=== PATIENT | male | born 2000 | race Caucasian/White ===

== ENCOUNTER 2024-07-04 18:02 | Emergency (ER) | payer BC, SELFPAY ==
[2024-07-04 18:03] VITALS: BP 129/84; PULSE 111; RESP 18; TEMP 37.2; O2SAT 99; BMI 26.5
--- NOTE | 2024-07-04 18:53 | CT_ITS ---
PROCEDURE INFORMATION: Exam: CT Lumbar Spine Without Contrast Exam date and time: 07/04/2024 7:18 PM Age: 23 years old Clinical indication: Other: Midline pain after bent over TECHNIQUE: Imaging protocol: Computed tomography of the lumbar spine without contrast. Radiation optimization: All CT scans at this facility use at least one of these dose optimization techniques: automated exposure control; mA and/or kV adjustment per patient size (includes targeted exams where dose is matched to clinical indication); or iterative reconstruction. COMPARISON: No relevant prior studies available. FINDINGS: Bones/joints: There is normal alignment of the lumbar spine. Five [id number] lumbar-type vertebra are noted. The vertebral bodies demonstrate normal height. There is no evidence of acute fracture or dislocation. Mild endplate irregularity is seen posteriorly at L1-L2. There is mild disc height loss at L1-L2. L1-L2: 3.2 mm central disc protrusion indents the ventral thecal sac but causes no significant spinal canal or neural foraminal narrowing. L2-L3: No significant disc bulge or herniation. No severe spinal canal stenosis. No significant neural foraminal narrowing. L3-L4: 4.6 mm central disc protrusion causes moderate spinal canal narrowing. No significant neural foraminal narrowing. L4-L5: No significant disc bulge or herniation. No severe spinal canal stenosis. Mild bilateral neural foraminal narrowing. L5-S1: 3.5 mm central disc protrusion without significant spinal canal or neural foraminal narrowing. Soft tissues: Unremarkable. IMPRESSION: 1. No evidence of acute osseous injury. 2. L3-L4 disc protrusion measuring 4.6 mm causes moderate spinal canal narrowing.
--- NOTE | 2024-07-04 18:55 | ED_ITS ---
Discharge Plan Disposition Patient Disposition: Home, Self-Care Prescriptions Prescriptions: New lidocaine 5 % adhesive patch,medicated 1 patch topical DAILY Qty: 15 0RF Rx Instructions: leave on most painful area for up to 12 hrs methocarbamol 500 mg tablet 1,000 mg PO Q8H PRN (Reason: muscle pain and spasm) Qty: 30 0RF Referrals Follow up/Referrals: Provider,Referral, MD [Primary Care Provider] - See instructions Activity Restrictions/Add. Instructions Additional Instructions/Restrictions: At this time it was felt you are safe to be discharged home. If new or worsening symptoms please do not hesitate to return the emergency department. Please take 1000 mg Tylenol and 800 mg of ibuprofen every 6 hours with little bit of food for pain. Please take your muscle relaxer as prescribed. Please follow-up with physical therapy, they should contact you for an appointment. Clinical Impressions Clinical Impression: Bulging lumbar disc Instructions Patient Instructions: DI for Low Back Pain Print Language Print Language: Kyrgyz Discharge ED Provider: [facility] HPI General Chief complaint: Back Pain/Injury Stated complaint: low back pain Time Seen by Provider: 07/04/24 18:31 Mode of Arrival: Ambulatory Source of Information: Patient Limitations: No Limitations Description of Symptoms (Recalled from ER Triage Doc. by RN): Pt states he was working on his chicken coop and when he stood up he felt a sharp pain in his pain, and has had limited range of motion since. History of Present Illness HPI narrative: Patient is 23-year-old male with no pertinent past medical history presents emergency department for evaluation back pain. Patient was bent over working on a chicken coop when he had severe midline and bilateral lumbar paraspinal pain. He pain is severe in intensity borderline debilitating. Lumbar in a bandlike distribution. No urinary or fecal incontinence. He has limited ability to walk secondary to pain in his back however he has preserved strength in his legs. No numbness in his legs. No other acute complaints at this time. Related Data Previous Rx's ?Medication ?Instructions ?Recorded lidocaine 5 % topical patch 1 patch topical DAILY back pain 07/04/24 #15 ea methocarbamol 500 mg tablet 1,000 mg (2 x 500 mg) PO Q8H PRN 07/04/24 muscle pain and spasm #30 tabs Allergies Allergy/AdvReac Type Severity Reaction Status Date / Time No Known Allergies Allergy Verified 07/04/24 22:07 [facility] Disclaimer: The information contained in this section may have been updated after the patient was seen, as this information can be updated by other users. Social History Smoking Status: Never smoker alcohol intake: never current occupational status: other Travel in the last 8 weeks: None ROS Obtained: Yes Systems reviewed as appropriate & no additional complaints except as documented Physical Exam General General appearance: alert and in no apparent distress Head Head exam: atraumatic and normocephalic Eye Eye exam: Present PERRL ENT ENT exam: Present mucous membranes moist Neck Neck exam: Present normal inspection Chest Chest inspection: Present normal inspection and symmetric chest wall rise Respiratory Respiratory exam: Absent respiratory distress Cardiovascular Cardiovascular exam: Present regular rate and normal rhythm Abdominal Exam Abdominal exam: Present soft Extremities Exam Extremities exam: Present normal inspection and other (5/5 strength bilateral lower extremities) Back Exam Back exam: Present other (No overlying skin changes, midline and bilateral lumbar tenderness.) Neurological Exam Neurological exam: Present alert Psychiatric Psychiatric exam: Present normal affect Skin Skin exam: Present warm and dry Medical Decision Making Medical Records Screening: Per USPSTF and CDC recommendations, given the prevalence of disease in our region, it is our hospital?s policy to screen for HIV and viral Hepatitis for all patients aged 18 and over and those with ongoing risk factors. Josh Inquiry Pt receiving controlled substance: No Vital Signs: 07/04/24 18:03 Temperature 98.9 F Temperature Source Oral Pulse Rate [Right] 111 H Respiratory Rate 18 Blood Pressure [Right Arm] 129/84 Blood Pressure Mean [Right Arm] 99 Blood Pressure Source [Right Arm] Automatic Cuff Blood Pressure Position [Right Arm] Sitting 02 Sat by Pulse Oximetry 99 Oxygen Delivery Method Room Air Orders (Tests/Meds): ED MEDICATIONS Discontinued Medications Generic Name Dose Route Start Last Admin Trade Name Freq PRN Reason Stop Dose Admin Acetaminophen 1,000 mg 07/04/24 18:53 07/04/24 19:33 Acetaminophen 500mg Tab PO 07/04/24 18:54 1,000 mg ONCE ONE Administration Ketorolac Tromethamine 60 mg 07/04/24 18:53 07/04/24 19:35 Ketorolac 30mg/Ml Vial IM 07/04/24 18:54 60 mg ONCE ONE Administration Lidocaine 1 each 07/04/24 18:53 07/04/24 19:34 Lidocaine 5% Transdermal Patch TP 07/04/24 18:54 1 each ONCE ONE Administration Methocarbamol 1,000 mg 07/04/24 18:54 07/04/24 19:33 Methocarbamol 500mg Tablet PO 07/04/24 18:55 1,000 mg ONCE ONE Administration Oxycodone HCl 5 mg 07/04/24 18:55 07/04/24 19:33 Oxycodone 5mg Immediate Release Tablet PO 07/04/24 18:56 5 mg ONCE ONE Administration ORDERS Category Date Time Status CT lumbar spine wo con Stat Cat Scan 07/04/24 18:53 Taken Medical Decision Narrative: In summary patient is 23-year-old male past medical history described above who presents emergency department for evaluation of back pain. Patient is hemodynamically stable nontoxic-appearing upon arrival, afebrile. History physical strongly consistent with slipped disc versus musculoskeletal strain. He has red flag symptoms only in the sense that he is tender in the midline. He does not have any saddle anesthesia, no incontinence to suggest spinal cord compression syndrome. However given midline tenderness differential includes insufficiency fracture, among others for which workup be conducted with CT lumbar spine. Initial interventions include multimodal pain control. CT lumbar spine remarkable for bulging disc without evidence of cord compression. Upon repeat evaluation patient had acceptable resolution of symptoms however was still in pain. Projected course was explained to the patient he will be discharged with a course of muscle relaxers and topical lidocaine patches was given return precautions. Critical Care Critical Care Time Critical Care Time: No
[2024-07-04] MEDS: METHOCARBAMOL 500MG TABLET 1000 MG PO (19:33)
[2024-07-04] MEDS: OXYCODONE 5MG IMMEDIATE RELEASE TABLET 5 MG PO (19:33)
[2024-07-04] MEDS: ACETAMINOPHEN 500MG TAB 1000 MG PO (19:33)
[2024-07-04] MEDS: LIDOCAINE 5% TRANSDERMAL PATCH 1 EACH TP (19:34)
[2024-07-04] MEDS: KETOROLAC 30MG/ML VIAL 60 MG IM (19:35)
[2024-07-04 22:27] VITALS: BP 138/82; PULSE 68; RESP 16; TEMP 36.8; O2SAT 98
== END 2024-07-04 22:27 | disposition home or self-care (01) ==
PROVIDERS: Emergency Provider Emergency Medicine
DX: M51.369 Other intervertebral disc degeneration, lumbar region without mention of lumbar back pain or lower extremity pain (principal); M54.50 Low back pain, unspecified
CPT/HCPCS: 72131; 96372; 99284; J1885